=== PATIENT | female | born 1965 | race Asian ===

== ENCOUNTER 2024-04-16 14:27 | Emergency (ER) | payer MEDICAID ==
[~2024-04-16] VITALS: Ht 165.1 cm; Wt 60.0 kg
[2024-04-16 14:30] VITALS: O2SAT 100
[2024-04-16] MEDS: SODIUM CHLORIDE 0.9% 1,000 ML IV ONE (15:37)
[2024-04-16 16:24] LABS: BASOPHILS % 0.4 % (0.0-2.0); EOSINOPHILS % 0.9 % (0.0-5.0); HEMATOCRIT. 38.3 % (36.0-48.0); HEMOGLOBIN. 12.6 g/dL (12.0-16.0); LYMPHOCYTES % 19.2 % (20.0-50.0); MEAN CORPUSCULAR HGB CONC 32.8 g/dL (31.0-37.0); MEAN CORPUSCULAR VOLUME 85.3 fL (81.0-99.0); MEAN PLATELET VOLUME 6.8 fl (7.4-10.4); MONOCYTES % 5.8 % (2.0-8.0); NEUTROPHILS % 73.7 % (40.0-76.0); PLATELET 210 x1000/uL (130-400); RED BLOOD CELL COUNT 4.49 mill/uL (4.2-5.4); RED CELL DISTRIBUTION WIDTH 13.5 % (11.6-14.6); WHITE BLOOD COUNT 5.5 x1000/uL (4.5-11.0)
[2024-04-16 16:38] LABS: CHLORIDE 107 mEq/L (98-107); POTASSIUM 3.4 mEq/L (3.5-5.1); SODIUM 139 mEq/L (136-145)
[2024-04-16 16:39] LABS: CALCIUM 8.2 mg/dL (8.7-10.4); CARBON DIOXIDE 24 mEq/L (21-32)
[2024-04-16 16:42] LABS: HCG SCREEN NEGATIVE
[2024-04-16 16:44] LABS: CREATININE 0.5 mg/dL (0.6-1.0); GLUCOSE 79 mg/dL (70-105); UREA NITROGEN BLOOD 13 mg/dL (9-23)
[2024-04-16 16:45] LABS: TROPONIN I HIGH SENSITIVITY 10 ng/L (3.0-34)
[2024-04-16 17:02] LABS: PROTHROMBIN TIME 11.4 sec (9.6-11.0)
[2024-04-16 17:46] VITALS: BP 105/68; PULSE 82; RESP 16; TEMP 98.2
== END 2024-04-16 18:13 | disposition home or self-care (01) ==
LOC: ER 14:27
DX: R55 Syncope and collapse (principal); R42 Dizziness and giddiness; Z85.9 Personal history of malignant neoplasm, unspecified
CPT/HCPCS: 36415; 80048; 84484; 84703; 85025; 93005; 96360; 99284